=== PATIENT | female | born 1960 | race African-American/Black ===

== ENCOUNTER 2024-03-14 14:42 | Emergency (ER) | payer OTHER ==
[~2024-03-14] VITALS: Ht 190.5 cm; Wt 83.0 kg
[2024-03-14 14:48] VITALS: O2SAT 99
[2024-03-14] MEDS: IBUPROFEN 600MG TABLET PO ONE (18:50)
[2024-03-14] MEDS ORDERED: CEPH500T MT (19:43)
[2024-03-14] MEDS ORDERED: IBUP-2029 MT (19:43)
[2024-03-14 19:50] VITALS: BP 110/66; PULSE 98; RESP 18; TEMP 37.11408; O2SAT 99
== END 2024-03-14 20:02 | disposition home or self-care (01) ==
LOC: ER 14:42
DX: L03.011 Cellulitis of right finger (principal); M79.674 Pain in right toe(s)
CPT/HCPCS: 73630; 99283